=== PATIENT | female | born 1980 | race Caucasian/White ===

== ENCOUNTER → 2018-07-29 16:44 | Outpatient (CLI) | payer OTHER, MEDICAID, SELFPAY ==
[2018-07-29 17:45] LABS: Add Manual Diff / Slide Review NO; Basophils Percent Auto 0.5 % (0-2); Eosinophils Percent Auto 2.8 % (2-4); Hematocrit 40.1 % (36-46); Hemoglobin 13.8 g/dL (12.0-16.0); Mean Corpuscular HGB Conc 34.5 % (30-36); Mean Corpuscular Hemoglobin 32.5 PG (26-34); Mean Corpuscular Volume 94.3 fL (80-100); Monocytes Percent Auto 6.6 % (3-14); Neutrophils Absolute Auto 4500 /uL (3000-5900); Neutrophils Percent Auto 63.1 % (50-75); Platelet Count 243 X10^3/uL (150-400); Red Blood Cell Count 4.25 X10^6/uL (4.0-5.2); Red Cell Distribution Width 12.8 % (11.6-14.8); White Blood Cell Count 7.1 X10^3/uL (4.5-11.0)
[2018-07-29 18:15] LABS: Alanine Aminotransferase 24 IU/L (9-52); Albumin 4.6 g/dL (3.5-5.0); Albumin Globulin Ratio 1.7 (1.0-2.8); Alkaline Phosphatase 46 U/L (38-126); Aspartate Aminotransferase 22 IU/L (14-36); BUN Creatinine Ratio 15.7 (6-22); Bilirubin Total 0.5 mg/dL (0.2-1.3); Blood Urea Nitrogen 11 mg/dL (7-17); Calcium 9.5 mg/dL (8.4-10.2); Carbon Dioxide 29 mmol/L (22-32); Chloride 102 mmol/L (98-107); Estimated Glomerular Filt Rate > 60.0 mL/min (>60); Globulin 2.7 g/dL (1.7-4.1); Glucose 122 mg/dL (70-100); HEMOLYSIS < 15 (0-50); Potassium 5.1 mmol/L (3.4-5.1); Sodium 143 mmol/L (137-145); Total Protein 7.3 g/dL (6.3-8.2)
[2018-07-29 18:46] LABS: TSH w/ Reflex to FT4 0.53 uIU/mL (0.47-4.68)
== END ==
PROVIDERS: Visit Provider Physician Assistant
DX: R53.83 Other fatigue (principal)
CPT/HCPCS: 36415; 80053; 84443; 85025

== ENCOUNTER → 2018-08-15 10:42 | Outpatient (CLI) | payer OTHER, MEDICAID, SELFPAY ==
[2018-08-15 12:53] LABS: Follicle Stimulating Hormone 6.91 mIU/mL; Luteinizing Hormone 6.11 mIU/mL
[2018-08-16 15:46] LABS: Estradiol 35 pg/mL
[2018-08-16 15:47] LABS: Progesterone 0.9 ng/mL
[2018-08-17 20:19] LABS: Estrogen 128.8 pg/mL
== END ==
PROVIDERS: PCP Physician Assistant; Visit Provider Physician Assistant
DX: N95.1 Menopausal and female climacteric states (principal); R61 Generalized hyperhidrosis; Z84.2 Family history of other diseases of the genitourinary system
CPT/HCPCS: 36415; 82670; 82672; 83001; 83002; 84144

== ENCOUNTER → 2018-09-01 17:01 | Outpatient (CLI) | payer OTHER, MEDICAID, SELFPAY | PROVIDERS: PCP Physician Assistant; Visit Provider Physician Assistant | DX: R39.9 Unspecified symptoms and signs involving the genitourinary system (principal) | CPT/HCPCS: 87077; 87086; 87186 ==

== ENCOUNTER → 2018-09-02 18:22 | Outpatient (CLI) | payer OTHER, MEDICAID, SELFPAY ==
[2018-09-02 20:12] LABS: Urine N gonorrhoeae NOT DETECTED
[2018-09-02 20:16] LABS: Urine Chlamydia NOT DETECTED
== END ==
PROVIDERS: PCP Physician Assistant; Visit Provider Physician Assistant
DX: R10.2 Pelvic and perineal pain (principal)
CPT/HCPCS: 87210; 87491; 87591

== ENCOUNTER → 2019-05-23 08:23 | Outpatient (CLI) | payer OTHER, MEDICAID, SELFPAY ==
[2019-05-23 10:26] LABS: Urine N gonorrhoeae NOT DETECTED
[2019-05-23 10:37] LABS: Urine Chlamydia NOT DETECTED
[2019-05-30 12:28] LABS: HIV-1/2 confirmation Not Detected (Not detected)
== END ==
PROVIDERS: PCP Physician Assistant; Visit Provider Physician Assistant
DX: Z20.2 Contact with and (suspected) exposure to infections with a predominantly sexual mode of transmission (principal)
CPT/HCPCS: 36415; 87491; 87535; 87591

== ENCOUNTER → 2020-01-28 16:07 | Outpatient (CLI) | payer OTHER, MEDICAID, SELFPAY ==
[2020-01-28 19:16] LABS: Bilirubin Urine UA NEGATIVE (NEGATIVE); Color Urine UA YELLOW; Glucose Urine UA NEGATIVE (Negative); Ketones Urine UA NEGATIVE (NEGATIVE); Leukocyte Esterase Urine UA TRACE (NEGATIVE); Nitrite Urine UA NEGATIVE (Negative); Occult Blood Urine UA 2+ (Negative); Protein Urine UA NEGATIVE (Negative); Urobilinogen Urine UA 0.2 E.U./dL (0.2)
[2020-01-28 19:20] LABS: Appearance Urine UA Slightly Cloudy; pH Urine UA 5.5 (4.5-8.0)
[2020-01-28 19:33] LABS: Bacteria Urine Occasional (0-1); Culture Indicated Urine Specimen Cultured; RBC Urine 1-5/HPF (0-5/HPF); Squamous Epithelial Cell Urine 1-5 /HPF (0-5/HPF); WBC Urine 5-10/HPF (0-5/HPF)
== END ==
PROVIDERS: PCP Family Medicine; Visit Provider Nurse Practitioner
DX: R30.0 Dysuria (principal); R35.0 Frequency of micturition; R82.998 Other abnormal findings in urine
CPT/HCPCS: 81003; 81015; 87086

== ENCOUNTER → 2020-04-12 14:53 | Outpatient (CLI) | payer OTHER, MEDICAID, SELFPAY ==
[2020-04-13 20:06] LABS: COVID19 Sendout Not Detected (Not Detect)
== END ==
PROVIDERS: PCP Family Medicine; Visit Provider Physician Assistant
DX: Z11.59 Encounter for screening for other viral diseases (principal)
CPT/HCPCS: 87635

== ENCOUNTER 2020-04-15 11:48 | Day surgery (SDC) | payer OTHER, MEDICAID, SELFPAY ==
[2020-04-15 12:36] VITALS: BP 137/74; PULSE 73; RESP 20; TEMP 36.3; O2SAT 16; BMI 25.0
[2020-04-15] MEDS: LACTATED RINGERS 1,000 ML 200 ML IV (12:52)
--- NOTE | 2020-04-15 13:06 | P.HP_ITS ---
History of Present Illness History of Present Illness Date Patient Seen: 04/15/20 Time Patient Seen: 13:06 Chief complaint: SDC Narrative: The patient presents for colorectal sreening. The previous colonoscopy years ago which was normal. No personal history of colon cancer. Her grandmother had colon cancer however she has no first-degree relatives with colon cancer. On further history denies any recent gastrointestinal symptoms. No nausea, vomiting, abdominal pain, loss of appetite, unexplained weight loss, change in bowel habits, diarrhea, constipation, melena, hematochezia, or bright red blood per rectum. Patient History Medical History (Updated 04/15/20 @ 13:09 by Sabas Christensen MD) Acne (Resolved 2011) ADHD (Acute) ADHD (attention deficit hyperactivity disorder) (Chronic 1996) Allergic rhinitis (Chronic 1990) Anemia (Resolved 2012) Anorexia nervosa (Resolved 2009) Anxiety (Chronic 2009) Asthma (Chronic 1989) Carpal tunnel syndrome (Chronic 2012) Chickenpox (Resolved 1998) Colon polyps (Resolved 2009) Depression (Chronic 2011) Dysuria (Acute) Family history of colon cancer (Acute) Fibrocystic breast disease (Acute) Frequent UTI (Chronic Unknown) GI bleed (Resolved 2016) Hemorrhoids (Resolved 2000) Irregular menstrual cycle (Chronic Unknown) PTSD (post-traumatic stress disorder) (Chronic ~2011) Reactive airway disease that is not asthma (Acute) Recurrent vaginitis (Chronic 2011) Surgical History (Updated 03/14/18 @ 17:26 by Fanny Taylor LPN) Hx of surgical procedure (Resolved 2011) Family & Social History Family History (Updated 03/14/18 @ 17:27 by Fanny Taylor LPN) Mother History of adenomatous polyp of colon Hypertension Hyperlipidemia Grandfather Cancer Social History: household members friend(s) Tobacco & Substance use: Smoking Status Former smoker alcohol intake current Substance Use Type does not use Meds Home Medications and Allergies Home Medications Medication Instructions Recorded Confirmed Type cetirizine 10 mg capsule 10 mg PO DAILY 09/01/18 04/15/20 History fluticasone propionate 115 2 puff INHALATION BID #12 gram 11/05/19 04/15/20 Rx mcg-salmeterol 21 mcg/actuation HFA inhaler montelukast 10 mg tablet 10 mg PO BEDTIME #90 tab 11/05/19 04/15/20 Rx fluconazole 150 mg tablet 150 mg PO Q3D #2 tab 02/03/20 04/15/20 Rx albuterol sulfate 90 mcg/actuation 2 puff INHALATION Q4-6H PRN #18 03/10/20 04/15/20 Rx aerosol inhaler gram albuterol sulfate 2.5 mg INHALATION QID PRN #90 ml 03/26/20 04/15/20 Rx dextroamphetamine-amphetamine ER See Rx Instructions .ROUTE 03/26/20 04/15/20 Rx 10 mg 24hr capsule,extend release .COMPLEX #30 cap Allergies Allergy/AdvReac Type Severity Reaction Status Date / Time prednisone [PREDNISONE] AdvReac Severe VOMITING Verified 04/15/20 12:34 Review of Systems Review of Systems Narrative: A 10 point review of systems is negative except as noted in the HPI Exam Vital Signs (past 8 hours): - 04/15/20 12:36 Temperature 97.4 F L Pulse Rate 73 Respiratory Rate 20 Blood Pressure 137/74 Pulse Oximetry 16 L Oxygen Delivery Method Room Air Oxygen Flow Rate 97 Narrative Exam Narrative: General-no acute distress, well nourished adult female HEENT-moist mucous membranes, no scleral icterus Neck-supple, no lymphadenopathy Chest- non labored respirations, clear to auscultation bilaterally Cardiac-regular rate no peripheral edema Abdomen-soft, nontender, non distended Extremities-warm, well perfused Neurological-alert and oriented, no focal deficits Assessment & Plan Assessment and plan (1) Screening for colon cancer: Status: Acute Assessment & Plan narrative: The patient is here for colorectal screening and colonoscopy is recommended. Technical details were discussed. Risks, benefits, alternatives explained. Risks including but not limited to myocardial infarcti on, aspiration, bleeding, pain, missed lesion, incomplete examination, need for further radiographic studies, colonic perforation, and need for major abdominal surgery were discussed. All questions were answered to their satisfaction, and they are in agreement with this plan.
[2020-04-15] MEDS: fentaNYL 250 MCG/5 ML INJ IV (13:15)
[2020-04-15] MEDS: MIDAZOLAM 5 MG/5 ML VIAL IV (13:15)
--- NOTE | 2020-04-15 13:38 | PM.OP.ENDO ---
Operative Date/Time/Diagnoses Date of procedure: 04/15/20 Time of procedure: 13:38 Pre-op diagnosis: Family history colon cancer Post-op diagnosis: same Procedure & Clinicians Study performed: Colonoscopy Same procedure as scheduled: Yes Indications: Family history of cancer Surgeon: Sabas Christensen Procedure Notes SCOAP/Timeout: Performed Procedure in detail: Patient placed in left lateral recumbent position. Time out was performed. Procedural sedation was administered with Versed and Fentanyl. Examination began with a thorough inspection of the perianal area there was no evidence of fissures, fistulae, external hemorrhoids or cutaneous malignancy. The colonoscopy scope was then placed into the rectum the the lumen was insufflated with air. The scope was carefully advanced forward. Ultimately the cecum was intubated and confirmed by identification of the ileocecal valve and the confluence of the taenia. The scope was then slowly withdrawn examining colon thoroughly in all directions. In the rectum the rectal columns were identified and retroflexion of the scope was performed for inspection of the distal rectum and anal canal. The colonoscopy was notable for the followin. Quality of the preparation-good 2. No masses or polyps 3. Grade 1 internal hemorrhoids Scope withdrawal time: 6 Sedation minutes: 21 Findings: internal hemorrhoids Specimen(s): none sent Complications: none Impression: Normal colonoscopy Post-procedure Recommendations: Other recommendation (Colonoscopy at age 51) Disposition: same day surgery
[2020-04-15 13:43] VITALS: BP 119/74; PULSE 76; RESP 16; TEMP 36.1; O2SAT 95
[2020-04-15 13:48] VITALS: BP 101/69; PULSE 69; RESP 12; O2SAT 95
[2020-04-15 13:53] VITALS: BP 107/65; PULSE 64; RESP 10; O2SAT 95
[2020-04-15 14:01] VITALS: BP 116/65; PULSE 73; RESP 13; TEMP 36.4; O2SAT 100
[2020-04-15 14:12] VITALS: BP 107/69; PULSE 74; RESP 12; TEMP 36.2; O2SAT 100
== END 2020-04-15 14:25 | disposition home or self-care (01) ==
PROVIDERS: PCP Family Medicine; Referring Provider Surgery; Visit Provider Surgery
PROC: 0DJD8ZZ Inspection of Lower Intestinal Tract, Via Natural or Artificial Opening Endoscopic (ICD-10-PCS; CPT 45378; principal; 2020-04-15 13:00)
DX: Z12.11 Encounter for screening for malignant neoplasm of colon (principal); F41.9 Anxiety disorder, unspecified; J45.909 Unspecified asthma, uncomplicated; K64.0 First degree hemorrhoids
CPT/HCPCS: 45378; 99152; J2250; J3010

== ENCOUNTER → 2023-03-01 16:07 | Outpatient (CLI) | payer BC, SELFPAY ==
[2023-03-01 16:42] LABS: Add Manual Diff / Slide Review NO; Basophils Absolute Auto 0 /uL (0-100); Basophils Percent Auto 0.8 % (0-2); Eosinophils Absolute Auto 200 /uL (0-450); Eosinophils Percent Auto 3.8 % (2-4); Hematocrit 39.8 % (36-46); Hemoglobin 13.6 g/dL (12.0-16.0); Lymphocytes Absolute Auto 1700 /uL (1100-4500); Lymphocytes Percent Auto 29.4 % (25-40); Mean Corpuscular HGB Conc 34.2 % (30-36); Mean Corpuscular Hemoglobin 31.1 PG (26-34); Monocytes Absolute Auto 500 /uL (0-900); Monocytes Percent Auto 8.7 % (3-14); Neutrophils Absolute Auto 3300 /uL (1500-7000); Neutrophils Percent Auto 57.3 % (50-75); Platelet Count 244 X10^3/uL (150-400); Red Blood Cell Count 4.37 X10^6/uL (4.0-5.2); White Blood Cell Count 5.8 X10^3/uL (4.5-11.0)
[2023-03-01 17:08] LABS: HEMOLYSIS < 15 (0-50)
[2023-03-01 17:15] LABS: Alanine Aminotransferase 23 IU/L (<35); Albumin 4.6 g/dL (3.5-5.0); Albumin Globulin Ratio 1.6 (1.0-2.8); Alkaline Phosphatase 53 U/L (38-126); Aspartate Aminotransferase 28 IU/L (14-36); BUN Creatinine Ratio 19.2 (6-22); Bilirubin Total 0.6 mg/dL (0.2-1.3); Blood Urea Nitrogen 14 mg/dL (7-17); Calcium 9.2 mg/dL (8.4-10.2); Carbon Dioxide 30 mmol/L (22-32); Chloride 102 mmol/L (98-107); Estimated Glomerular Filt Rate > 60 mL/min (>60); Globulin 2.9 g/dL (1.7-4.1); Glucose 85 mg/dL (70-100); Potassium 4.3 mmol/L (3.4-5.1); Sodium 137 mmol/L (137-145); Total Protein 7.5 g/dL (6.3-8.2)
[2023-03-02 01:19] LABS: HEMOLYSIS < 15 (0-50); Iron 38 ug/dL (37-170)
[2023-03-02 01:30] LABS: Percent Iron Saturation 12 % (15-50); Total Iron Binding Capacity 306 ug/dL (265-497); Transferrin 215 mg/dL (206-381)
[2023-03-02 02:12] LABS: Vitamin B12 747 pg/mL (239-931)
== END ==
PROVIDERS: PCP Family Medicine; Referring Provider Family Medicine; Visit Provider Family Medicine
DX: F90.9 Attention-deficit hyperactivity disorder, unspecified type (principal); E53.8 Deficiency of other specified B group vitamins; D64.9 Anemia, unspecified
CPT/HCPCS: 36415; 80053; 82607; 83540; 83550; 85025

== ENCOUNTER → 2023-07-03 15:16 | Outpatient (CLI) | payer BC, SELFPAY | PROVIDERS: PCP Family Medicine; Visit Provider Family Medicine | DX: N39.0 Urinary tract infection, site not specified (principal) | CPT/HCPCS: 87086 ==

== ENCOUNTER → 2024-06-23 10:17 | Outpatient (CLI) | payer BC, SELFPAY ==
[2024-06-23 11:20] LABS: Add Manual Diff / Slide Review NO; Basophils Absolute Auto 100 /uL (0-100); Eosinophils Absolute Auto 200 /uL (0-450); Eosinophils Percent Auto 2.4 % (2-4); Hematocrit 42.5 % (36-46); Hemoglobin 14.7 g/dL (12.0-16.0); Lymphocytes Absolute Auto 1400 /uL (1100-4500); Lymphocytes Percent Auto 21.7 % (25-40); Mean Corpuscular HGB Conc 34.7 % (30-36); Mean Corpuscular Hemoglobin 31.7 PG (26-34); Mean Corpuscular Volume 91.4 fL (80-100); Monocytes Absolute Auto 400 /uL (0-900); Monocytes Percent Auto 6.2 % (3-14); Neutrophils Absolute Auto 4400 /uL (1500-7000); Neutrophils Percent Auto 68.7 % (50-75); Platelet Count 296 X10^3/uL (150-400); Red Blood Cell Count 4.65 X10^6/uL (4.0-5.2); Red Cell Distribution Width 13.5 % (11.6-14.8); White Blood Cell Count 6.4 X10^3/uL (4.5-11.0)
[2024-06-23 12:08] LABS: Alanine Aminotransferase 19 IU/L (<35); Albumin 4.7 g/dL (3.5-5.0); Albumin Globulin Ratio 1.6 (1.0-2.8); Alkaline Phosphatase 66 U/L (38-126); Aspartate Aminotransferase 26 IU/L (14-36); Bilirubin Total 0.6 mg/dL (0.2-1.3); Blood Urea Nitrogen 9 mg/dL (7-17); Calcium 9.1 mg/dL (8.4-10.2); Carbon Dioxide 26 mmol/L (22-32); Chloride 104 mmol/L (98-107); Cholesterol 245 mg/dL (140-199); Estimated Glomerular Filt Rate > 60 mL/min (>60); Glucose 92 mg/dL (70-100); HDL Cholesterol 59 mg/dL (40-60); HEMOLYSIS < 15 (0-50); LDL Cholesterol Calculated 137 mg/dL (<100); Potassium 3.8 mmol/L (3.4-5.1); Sodium 139 mmol/L (137-145); Total Protein 7.7 g/dL (6.3-8.2); Triglycerides 246 mg/dL (35-150)
[2024-06-23 12:09] LABS: HEMOLYSIS < 15 (0-50); Iron 104 ug/dL (37-170)
[2024-06-23 12:21] LABS: Percent Iron Saturation 33 % (15-50); Total Iron Binding Capacity 313 ug/dL (265-497); Transferrin 266 mg/dL (206-381)
[2024-06-23 12:35] LABS: TSH w/ Reflex to FT4 1.13 uIU/mL (0.47-4.68)
[2024-06-23 12:54] LABS: Vitamin B12 501 pg/mL (239-931)
[2024-06-23 16:07] LABS: Vitamin D 25 Hydroxy (D3) 50.4 ng/mL (30.0-100.0)
== END ==
LOC: LAB 10:18
PROVIDERS: PCP Family Medicine; Referring Provider Family Medicine; Visit Provider Family Medicine
DX: Z00.00 Encounter for general adult medical examination without abnormal findings (principal); F90.9 Attention-deficit hyperactivity disorder, unspecified type; F41.8 Other specified anxiety disorders; D50.9 Iron deficiency anemia, unspecified
CPT/HCPCS: 36415; 80053; 80061; 82306; 82607; 83540; 83550; 84443; 85025